=== PATIENT | female | born 1945 | race Caucasian/White ===

== ENCOUNTER 2017-06-15 08:32 | Emergency (ER) | payer MEDICARE, OTHER ==
[2017-06-15 08:40] VITALS: BP 105/74
[2017-06-15] MEDS ORDERED: ALBUTEROL SULFATE/IPRATROPIUM 3 ML NEBU IH ONE ×3 (08:50→09:13)
--- NOTE | 2017-06-15 08:52 | ERNOTE ---
Time Seen by Provider: 06/15/17 08:33 Stated Complaint: COUGH Presenting Symptoms:: cough Source: patient Exam Limitations: no limitations Immunizations: IMMUNIZATION HX Immunizations Up to Date Yes History of Influenza Vaccine No Hx Pneumococcal Vaccination Yes Allergies/Adverse Reactions: Allergies cefaclor [From [facility]] Allergy (Intermediate, Verified 06/15/17 08:40) Hives latex Allergy (Verified 06/15/17 08:40) Home Medications: HOME MEDICATIONS Aspirin [Aspirin Enteric Coated] 162 mg PO DAILY 11/20/13 [Last Taken 11/19/14] Atorvastatin Calcium 20 mg PO HS 11/20/13 [Last Taken 11/19/14] Budesonide/Formoterol Fumarate [Symbicort 160-4.5 Mcg Inhaler] 1 puff IH BID [Last Taken 11/19/14] Hydrochlorothiazide 25 mg PO DAILY 11/20/13 [Last Taken 11/19/14] Lisinopril 40 mg PO DAILY 11/20/13 [Last Taken 11/19/14] Metoprolol Succinate [Toprol Xl] 100 mg PO DAILY 11/20/13 [Last Taken 11/19/14] Multivitamin [Daily Vitamin] 1 each PO DAILY 11/20/13 [Last Taken 11/19/14] Nitroglycerin 0.4 mg SL Q5MX3 PRN 11/20/13 [Last Taken 11/19/14] [place]-3/Dha/Epa/Fish Oil [Fish Oil] 1,000 mg PO DAILY 11/20/13 [Last Taken 11/19] amLODIPine BESYLATE [Norvasc (Amlodipine)] 5 mg PO DAILY 11/20/13 [Last Taken ] Carbamide Peroxide [Debrox] 1 drop OT Q4H #1 bottle 02/14/15 [Last Taken Unknown ] Cholecalciferol (Vitamin D3) [Vitamin D3] 1,000 unit PO DAILY 09/24/16 [Last Taken Unknown] Meclizine HCl [Antivert] 25 mg PO Q4H PRN 09/24/16 [Last Taken Unknown] Potassium Chloride [K-Dur] 20 meq PO DAILY 09/24/16 [Last Taken Unknown] Albuterol Sulfate [Proair Hfa] 1 - 2 puff IH Q4H PRN #1 inhaler 06/15/17 [Last Taken Unknown] Azithromycin 250 mg PO DAILY #6 tablet 06/15/17 [Last Taken Unknown] guaiFENesin/DEXTROMETHORPHAN [Robitussin-Dm] 5 ml PO TID PRN #1 btl 06/15/17 [ Last Taken Unknown] - History of Present Ilness Narrative: Patient presents to the emergency room for a cough that has gotten progressively worse over the past 2 days. She has a history of asthma and a "touch" of COPD. No one smokes around her she denies any fevers or chills nausea or vomiting. She does admit to being short of breath from time to time. Review of Systems - Review of Systems Constitutional: Present: no symptoms reported EYE: Present: no symptoms reported ENT: Present: no symptoms reported Respiratory: Present: See HPI Cardiology: Present: no symptoms reported Gastrointestinal/Abdominal: Present: no symptoms reported Genitourinary: Present: no symptoms reported Musculoskeletal: Present: no symptoms reported - Patient's Past Medical History Patient History - Medical: Arthritis, GERD, Obesity Patient History - Cardiac/Respiratory: No pertinent hx Patient History - Cancer: No Hx of Cancer Patient History - Surgical Procedures: Appendectomy, Hysterectomy, Pacemaker, Other Patient History - Other: None LMP (females 10-50): Menopausal - Social History Living Situations: home Abuse History: No History of abuse Psych History: No pertinent hx Smoking Status: Former smoker Have you smoked in the past 12 months: No Alcohol Use: none Drug Use: none - Immunizations Immunizations Up to Date: Yes Hx Pneumococcal Vaccination: Yes History of Influenza Vaccine: No Physical Exam - Physical Exam General Appearance: Present: wd/wn, alert, no apparent distress, other - patient is working slightly harder to breathe but she's not in any distress. Head Exam: Present: normal inspection, no evidence of injury Eye Exam: Normal inspection: bilateral, PERRL: bilateral, EOMI: bilateral Ears, Nose, Throat: Present: normal ENT inspection, normal pharynx Neck: Present: normal inspection, nontender, supple, full range of motion Respiratory: Present: no respiratory distress, chest nontender, other - patient has decreased breath sounds at both bases upon taking a deep breath patient is clear on inspiration on end expiration she has some end expiratory wheezes. Cardiovascular/Chest: Present: regular rate, rhythm, no murmur, normal peripheral pulses Gastrointestinal/Abdominal: Present: normal bowel sounds, nontender, nondistended, soft Extremity Exam: Present: normal inspection, normal range of motion ED Progress - Vital Signs Patient's Vital Signs:: I have reviewed the patient's vital signs. Vital Signs: Vital Signs 06/15/17 08:36 Temperature 36.4 C L Pulse Rate 81 Respiratory 16 Rate Blood Pressure 105/74 O2 Sat by Pulse 91 Oximetry - X-Ray X-Ray #1 X-Ray: chest - Progress/Reassessment Chief Complaint: Cough Departure - Departure Clinical Impression: Bronchitis Disposition: Home self-care Condition: Good Instructions: Acute Bronchitis, [id number] Referrals: Roslyn Trevizo MD [Primary Care Provider] - Prescriptions: Albuterol Sulfate [Proair Hfa] 1 - 2 puff IH Q4H PRN #1 inhaler PRN Reason: Shortness Of Breath Azithromycin 250 mg PO DAILY #6 tablet guaiFENesin/DEXTROMETHORPHAN [Robitussin-Dm] 5 ml PO TID PRN #1 btl PRN Reason: Cough
== END 2017-06-15 09:50 | disposition home or self-care (01) ==
LOC: ER 08:32
DX: J40 Bronchitis, not specified as acute or chronic (principal); Z87.891 Personal history of nicotine dependence

== ENCOUNTER 2017-10-06 18:32 | Emergency (ER) | payer MEDICARE, OTHER ==
--- NOTE | 2017-10-06 18:45 | ERNOTE ---
Dyspnea - Date Date of Service: 10/06/17 - General Presenting Symptoms: shortness of breath Time Seen by Provider: 10/06/17 18:37 Source: patient, RN notes reviewed Exam Limitations: no limitations - Immun/Allergies/Home Medications Immunizations: IMMUNIZATION HX Immunizations Up to Date Yes History of Influenza Vaccine No Hx Pneumococcal Vaccination Yes Allergies/Adverse Reactions: Allergies cefaclor [From Ceclor] Allergy (Mild, Verified 10/06/17 20:30) Hives latex Allergy (Unknown, Verified 10/06/17 20:30) Home Medications: HOME MEDICATIONS Aspirin [Aspirin Enteric Coated] 162 mg PO DAILY 11/20/13 [Last Taken 11/19/14] Budesonide/Formoterol Fumarate [Symbicort 160-4.5 Mcg Inhaler] 1 puff IH BID [Last Taken 11/19/14] Hydrochlorothiazide 25 mg PO DAILY 11/20/13 [Last Taken 11/19/14] Lisinopril 40 mg PO DAILY 11/20/13 [Last Taken 09/29/17 09:43] Nitroglycerin 0.4 mg SL Q5MX3 PRN 11/20/13 [Last Taken 11/19/14] amLODIPine BESYLATE [Norvasc (Amlodipine)] 5 mg PO DAILY 11/20/13 [Last Taken 09:43] Potassium Chloride [K-Dur] 20 meq PO DAILY 09/24/16 [Last Taken Unknown] Albuterol Sulfate [Albuterol Sulfate 2.5 MG/3 ML] 2.5 mg IH Q6H 09/05/17 [Last Taken Unknown] Atorvastatin Calcium [Lipitor] 40 mg PO HS 09/05/17 [Last Taken Unknown] Cholecalciferol (Vitamin D3) [Vitamin D3] 1,000 unit PO DAILY 09/05/17 [Last Taken Unknown] Metoprolol Succinate [Toprol Xl] 200 mg PO DAILY 09/05/17 [Last Taken 09/29/17 09:43] Multivitamins [Multivitamin Christin] 1 cap PO DAILY 09/05/17 [Last Taken Unknown] Omeprazole [Prilosec] 20 mg PO DAILY 09/05/17 [Last Taken Unknown] Vitamin B Complex Vit C No.4 [Super B Complex] 150 mg PO DAILY 09/05/17 [Last Taken Unknown] Azithromycin [Zithromax] 250 mg PO DAILY #4 tablet 10/06/17 [Last Taken Unknown] [place]-3 Fatty Acids/Fish Oil [Fish Oil 1,000 mg Capsule] 1 each PO DAILY [Last Taken Unknown] predniSONE [Prednisone] 2 tab PO DAILY #14 tab 10/06/17 [Last Taken Unknown] - Pain Score Pain Score #1 Pain Score: 0 - History of Present Illness Narrative: Isabella is a 72 year female who presents to the ED by private car from home for shortness of breath. This began 2 days ago, along with a cough, and has been getting gradually worse. 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 She denies fevers or any chest pain. Date (Duration): 10/04/17 Treatment [employer]: none Initiating event: Reports: unknown Frequency of episodes: Reports: occassional episodes Modifying Factors - (Improves): Reports: rest Modifying Factors (Worsens): Reports: activity, lying down Prior Treatment: Denies: recently seen, currently on antibiotics Review of Systems - Review of Systems Constitutional: Present: chills, fatigue, malaise. Absent: recent illness, fever EYE: Present: no symptoms reported ENT: Present: nasal drainage. Absent: ear pain, nose congestion, sore throat Respiratory: Present: shortness of breath, cough, orthopnea, wheezing. Absent: stridor Cardiology: Absent: chest pain, palpitations, syncope, edema Gastrointestinal/Abdominal: Absent: nausea, vomiting, abdominal pain Genitourinary: Absent: decreased urinary output Musculoskeletal: Absent: muscle pain, joint pain Skin: Absent: rash, lesions Neurological: Absent: headache, dizziness/light-headedness Endocrine: Present: no symptoms reported Hematologic/Lymphatic: Present: no symptoms reported Psych: Absent: anxiety, depressed - Patient's Past Medical History Patient History - Medical: Arthritis, GERD, Obesity Patient History - Cardiac/Respiratory: Atrial Fibrillation, Asthma, Hypertension , Hyperlipidemia, Valvular Heart Disease, CPAP/BiPAP Home Use, Sleep Apnea, Other Patient History - Cancer: No Hx of Cancer Patient History - Surgical Procedures: Appendectomy, Hysterectomy, Pacemaker, Other Patient History - Other: None LMP (females 10-50): Menopausal - Family History Father Family History - Medical: , Alcohol Abuse, Other Family History - Cardiac/Respiratory: No pertinent hx Family History - Cancer: No pertinent family hx Mother Family History - Medical: , Arthritis Family History - Cardiac/Respiratory: Coronary Heart Disease, Hypertension, Hyperlipidemia Family History - Cancer: No pertinent family hx - Social History Living Situations: alone Abuse History: No History of abuse Psych History: No pertinent hx Smoking Status: Former smoker Alcohol Use: none Drug Use: none - Immunizations Immunizations Up to Date: Yes Hx Pneumococcal Vaccination: Yes History of Influenza Vaccine: No Physical Exam - Physical Exam General Appearance: Present: alert, mild distress, obese, other - pleasant, appropriately dressed and groomed Head Exam: Present: normal inspection Eye Exam: Normal inspection: bilateral Ears, Nose, Throat: Present: normal ENT inspection, normal pharynx Neck: Present: normal inspection, nontender, supple Respiratory: Present: respiratory distress, accessory muscle use, crackles, wheezing Cardiovascular/Chest: Present: regular rate, rhythm, normal peripheral pulses, systolic murmur Gastrointestinal/Abdominal: Present: nontender, nondistended, soft Extremity Exam: Present: normal inspection, normal range of motion, no edema Neurological Exam: Present: alert, oriented, normal mood/affect, no motor/ sensory deficits Skin Exam: Present: normal color, warm/dry ED Progress - Results and Orders Patient's Lab Results:: I have reviewed the patient's lab results. - Vital Signs Patient's Vital Signs:: I have reviewed the patient's vital signs. - EKG EKG: other - paced rhythm EKG read: Reviewed by me - X-Ray X-Ray #1 X-Ray: chest Interpretation: Reviewed by me X-ray Comments: Technique: PA and lateral views of the chest are compared to prior dated June 15, 2017. Findings: Stable median sternotomy wires and cardiac pacing device. Diffuse hyperinflation of the lungs bilaterally with flattening of the hemidiaphragm. The lungs are clear bilaterally. There is no consolidation, pleural effusion or pneumothorax. Aortic atherosclerosis and tortuosity. Cardiac silhouette and pulmonary vasculature are normal. The osseous structures demonstrate degenerative changes of the spine and shoulders. IMPRESSION: NO ACUTE CARDIOPULMONARY ABNORMALITY IDENTIFIED. Electronically signed by Lenny Felipe D.O.. - CT/Ultrasound CT/Ultrasound Narrative: CTA chest negative for PE - Progress/Reassessment Progress:: Improved Departure Clinical Impression: Acute bronchitis Qualifiers: Bronchitis organism: unspecified organism Qualified Code(s): J20.9 - Acute bronchitis, unspecified - Departure Disposition: Home Follow Up Needed Condition: Stable Instructions: Acute Bronchitis, [id number] Referrals: Roslyn Trevizo MD [Primary Care Provider] - Prescriptions: Azithromycin [Zithromax] 250 mg PO DAILY #4 tablet predniSONE [Prednisone] 2 tab PO DAILY #14 tab
[2017-10-06] MEDS ORDERED: ALBUTEROL SULFATE/IPRATROPIUM 3 ML NEBU IH ONE (18:53)
[2017-10-06] MEDS: ALBUTEROL SULFATE/IPRATROPIUM 3 ML NEBU IH ONE (18:55)
[2017-10-06 18:59] LABS: Hematocrit 37.6 % (37.0-47.0); Hemoglobin 12.2 gm/dL (12.5-16.0); Mean Cell Volume 93.8 fl (78-100); Mean Corpuscular Hemoglobin 30.4 pg (27-31); Mean Corpuscular Hgb Conc 32.4 g/dl (32-36); Mean Platelet Volume 10.2 fl (6.0-9.5); Neutrophil # 7.3 K/mm3 (1.3-6.0); Neutrophil % 71.4 % (42-75.0); Platelet Count 197 K/mm3 (150-450); Red Blood Count 4.01 M/mm3 (4.2-5.4); Red Cell Distribution Width 13.2 % (11.5-14.0); White Blood Count 10.2 K/mm3 (4.0-10.5)
[2017-10-06 19:18] LABS: Albumin * 3.3 gm/dl (3.4-5.0); Anion Gap 8.8 mmol/L (6.8-13.8); BUN/Creatinine Ratio 16.7 (9.0-21.6); Bilirubin, Total 0.6 mg/dL (0.0-1.1); Ca. Corrected For Albumin 9.2 mg/dL (8.4-10.2); Potassium 3.8 mmol/L (3.4-4.6)
[2017-10-06] MEDS ORDERED: FUROSEMIDE 10 MG/ML VIAL ONE (19:30)
[2017-10-06] MEDS: FUROSEMIDE 10 MG/ML VIAL IV ONE (19:31)
[2017-10-06] MEDS ORDERED: AZITHROMYCIN 250 MG TABLET ONE (22:02)
[2017-10-06] MEDS ORDERED: METHYLPREDNISOLONE SOD SUCC/PF 125 MG/2 ML VIAL ONE (22:03)
[2017-10-06] MEDS: METHYLPREDNISOLONE SOD SUCC/PF 125 MG/2 ML VIAL IV ONE (22:05)
[2017-10-06] MEDS: AZITHROMYCIN 250 MG TABLET PO ONE (22:05)
[2017-10-06 22:14] VITALS: BP 110/48
== END 2017-10-06 22:12 | disposition home or self-care (01) ==
LOC: ER 18:32
DX: J20.9 Acute bronchitis, unspecified (principal); I10 Essential (primary) hypertension; K21.9 Gastro-esophageal reflux disease without esophagitis; I48.91 Unspecified atrial fibrillation